=== PATIENT | female | born 1975 | race Caucasian/White ===

== ENCOUNTER 2021-12-18 14:04 | Emergency (ER) | payer SELFPAY ==
[~2021-12-18] VITALS: Ht 162.6 cm; Wt 83.9 kg
--- NOTE | 2021-12-18 14:28 | NUR ---
COVID TEST COLLECTED AND SENT
--- NOTE | 2021-12-18 14:48 | NUR ---
URINE COLLECTED AND SENT
[2021-12-18 14:50] VITALS: BP 145/100
--- NOTE | 2021-12-18 15:05 | NUR ---
Patient eloped from facility. ER MD notified.
[2021-12-18 16:20] LABS: BILIRUBIN,URINE NEGATIVE (NEGATIVE); COLOR,URINE YELLOW (YELLOW); LEUKOCYTE ESTERASE ,URINE MODERATE (NEGATIVE); NITRITE, URINE NEGATIVE (NEGATIVE); PROTEIN,URINE TRACE mg/dl (NEGATIVE); UGLUCOSE NEGATIVE (NEGATIVE); UROBILINOGEN,URINE 0.2 EU/dL (0.2)
[2021-12-18 16:26] LABS: BACTERIA,URINE 3+ /HPF (None Seen); MUCUS,URINE Many /LPF (None Seen); WBC,URINE 21-50 /HPF (0-3)
== END 2021-12-18 15:05 | disposition left against medical advice (07) ==
LOC: ER 14:06
DX: Z76.89 Persons encountering health services in other specified circumstances (principal); Z20.822 Contact with and (suspected) exposure to COVID-19; Z53.20 Procedure and treatment not carried out because of patient's decision for unspecified reasons; F41.9 Anxiety disorder, unspecified; Z88.1 Allergy status to other antibiotic agents; G62.9 Polyneuropathy, unspecified; M19.90 Unspecified osteoarthritis, unspecified site
CPT/HCPCS: 80307; 81001; 87086; 87426; 99283; C9803